=== PATIENT | male | born 1960 | race Two or more races ===

== ENCOUNTER 2019-01-21 15:25 | Emergency (ER) | payer OTHER ==
[~2019-01-21] VITALS: Ht 182.9 cm; Wt 74.8 kg
[2019-01-21 15:40] VITALS: BP 151/83
--- NOTE | 2019-01-21 16:28 | NUR ---
PATIENT RELEASED BY PD. PATIENT A/OX4, IN STABLE CONDITION. Patient given written and verbal discharge instructions. Patient verbalizes understanding of instructions. Patient is ambulatory with steady gait. Refuses offer of half-way placement. Patient given list of available shelters in surrounding area. Tap card provided.
== END 2019-01-21 16:31 | disposition home or self-care (01) ==
LOC: ER 15:28
DX: I82.493 Acute embolism and thrombosis of other specified deep vein of lower extremity, bilateral (principal); F17.200 Nicotine dependence, unspecified, uncomplicated; E03.9 Hypothyroidism, unspecified; Z76.0 Encounter for issue of repeat prescription; Z98.890 Other specified postprocedural states; Z60.2 Problems related to living alone; Z71.6 Tobacco abuse counseling